=== PATIENT | female | born 2000 | race Caucasian/White ===

== ENCOUNTER 2019-01-10 18:22 | Outpatient (CLI) | payer SELFPAY ==
[2019-01-10 20:34] VITALS: BP 122/75; PULSE 98; RESP 16; TEMP 97.5
== END 2019-01-10 20:04 | disposition home or self-care (01) ==
LOC: FBPOP 18:22
PROVIDERS: ATTEND Obstetrics & Gynecology
DX: O47.03 False labor before 37 completed weeks of gestation, third trimester (principal); Z3A.36 36 weeks gestation of pregnancy
CPT/HCPCS: 59025; 99213

== ENCOUNTER 2019-02-02 05:53 | Inpatient (IN) | payer OTHER ==
--- NOTE | 2019-02-01 20:36 | P.HPOB ---
History of Present Illness H&P Date: 02/01/19 This is a 18 y.o. female, 1, para 0, with an estimated date of confinement of 01/27/2019, estimated gestational age of 40-6/7 weeks, who presents for induction of labor due to post-dates. She admits to good movement and does feel irregular contractions and pressure. course has been essentially uncomplicated other than she was diagnosed with a right EIF on her anatomy ultrasound. She was unable to continue going to maternal medicine due to transportation issues. labs: GC/20/minus-negative Hepatitis B surface antigen-negative RPR-nonreactive Rubella-nonimmune Blood type-A+ Antibody screen-negative HIV-nonreactive The globe and-10.9 Toxoplasma screen-negative Random glucose-97 Obstetrical ultrasound-echogenic focus noted in the heart., echocardiogram-essentially normal One hour Glucola-171 Three-hour Glucola-within normal limits Group B streptococcus-negative Obstetrical history: ASSIST[employer] SUPERINTENDENT history: No history of sexual transmitted diseases Social history: She is single. She works part-time as a ct scan special procedures technologist. Review of Systems Constitutional: Denies chills, Denies fever Eyes: denies blurred vision, denies pain Ears, nose, mouth and throat: Denies headache, Denies sore throat Cardiovascular: Denies chest pain, Denies shortness of breath Respiratory: Denies cough Gastrointestinal: Reports abdominal pain (Irregular contractions), Denies diarrhea, Denies nausea, Denies vomiting Genitourinary: Reports pelvic pain, Reports , Denies dysuria, Denies hematuria Musculoskeletal: Reports low back pain Integumentary: Denies pruritus, Denies rash Neurological: Denies numbness, Denies weakness Psychiatric: Reports anxiety Past Medical History Past Medical History: No Reported History History of Any Multi-Drug Resistant Organisms: None Reported Past Surgical History: No Surgical Hx Reported Past Psychological History: No Psychological Hx Reported Smoking Status: Never smoker Past Alcohol Use History: None Reported Past Drug Use History: None Reported - Past Family History Mother Family Medical History: No Reported History Medications and Allergies Home Medications Medication Instructions Recorded Confirmed Type Pnv No.95/Ferrous Fum/Folic AC 1 each PO DAILY 01/10/19 01/10/19 History [ Multivitamin Tablet] Allergies Allergy/AdvReac Type Severity Reaction Status Date / Time No Known Allergies Allergy Verified 01/10/19 18:31 Exam Osteopathic Statement: *. No significant issues noted on an osteopathic structural exam other than those noted in the History and Physical/Consult. HEENT: Within normal limits Heart: Regular rate and rhythm Lungs: Clear to auscultation bilaterally Abdomen: Cervix: 1 cm/70%/-2 heart tones 140s by Doppler Extremities: Negative Homans Assessment and Plan (1) Post-term , 40-42 weeks of gestation Status: Acute Code(s): O48.0 - POST-TERM SNOMED Code(s): 65018863 Plan: Proceed with oxytocin induction of labor. Expectant management. Epidural anesthesia if desired.
[2019-02-02] MEDS ORDERED: OXYTOCIN 10 UNIT/ML 1 ML VIAL IM PRN (06:23)
[2019-02-02] MEDS ORDERED: METHYLERGONOVINE 0.2 MG/ML 1 ML AMP IM PRN (06:23)
[2019-02-02] MEDS ORDERED: LIDOCAINE 1% 20 ML VIAL (10MG/ML) FOR IV START INTRADERMA PRN (06:23)
[2019-02-02] MEDS ORDERED: LIDOCAINE 0.5% (PF) 5 MG/ML (50 ML SDV) SQ PRN (06:23)
[2019-02-02] MEDS ORDERED: TERBUTALINE 1 MG/ML VIAL SQ PRN (06:23)
[2019-02-02] MEDS ORDERED: OXYTOCIN 30 UNITS/500 ML NS 30 UNIT in SALINE 1 500ML.BAG IV SCH (06:23)
[2019-02-02] MEDS ORDERED: CARBOPROST TROMETHAMINE 250 MCG/ML 1 ML AMP IM PRN (06:23)
[2019-02-02 06:32] VITALS: BMI 32.8
[2019-02-02 06:42] LABS: Basophils % (A) 1 %; Eosinophils # (A) 0.1 k/uL (0-0.7); Eosinophils % (A) 1 %; HCT 33.1 % (34.0-46.0); HGB 10.9 gm/dL (11.4-16.0); Lymphocytes # (A) 1.6 k/uL (1.0-4.8); Lymphocytes % (A) 22 %; MCH 28.2 pg (25.0-35.0); MCHC 33.1 g/dL (31.0-37.0); MCV 85.3 fL (80.0-100.0); Mean Platelet Volume 8.7; Monocytes # (A) 0.7 k/uL (0-1.0); Monocytes % (A) 9 %; Neutrophils # (A) 4.6 k/uL (1.3-7.7); Neutrophils % (A) 64 %; Platelet Count 221 k/uL (150-450); RBC 3.88 m/uL (3.80-5.40); RDW 14.4 % (11.5-15.5); WBC 7.2 k/uL (4.0-11.0)
[2019-02-02] MEDS: LACTATED RINGERS 1,000 ML IV SCH ×3 (06:44→15:56)
[2019-02-02] MEDS ORDERED: BUTORPHANOL 1 MG/ML 1 ML VIAL IV PRN (11:09)
[2019-02-02] MEDS ORDERED: ROPIVACAINE 5MG/ML 20ML VIAL ONE (12:42)
[2019-02-02] MEDS ORDERED: fentaNYL (PF) 50 MCG/ML 5 ML AMP ONE (12:42)
[2019-02-02] MEDS ORDERED: SODIUM CHLORIDE 0.9% 100 ML BAG ONE (12:42)
[2019-02-02] MEDS ORDERED: CITRIC ACID-SODIUM CITRATE 15 ML CUP PO ONE ×2 (19:48→19:59)
[2019-02-02] MEDS ORDERED: ONDANSETRON 4 MG/2 ML VIAL ONE (20:16)
[2019-02-02] MEDS ORDERED: KETOROLAC 30 MG/ML 1 ML VIAL ONE (20:16)
[2019-02-02] MEDS ORDERED: PHENYLEPHRINE-0.9% NACL SYG 1 MG/10 ML SYRINGE ONE (20:16)
[2019-02-02] MEDS ORDERED: fentaNYL (PF) 50 MCG/ML 2 ML AMP ONE (20:16)
[2019-02-02] MEDS ORDERED: OXYTOCIN 10 UNIT/ML 1 ML VIAL ONE (20:16)
--- NOTE | 2019-02-02 21:02 | P.OP ---
Date of Procedure: 02/02/19 Preoperative Diagnosis: 1. Intrauterine at 40-6/7 weeks. 2. Obstruction of labor. Postoperative Diagnosis: Same Procedure(s) Performed: Primary low transverse section Anesthesia: epidural Surgeon: Jazzmine Lama Administrative Dietitian #1: Albert Hand Estimated Blood Loss (ml): 800 Pathology: other (Placenta) Condition: stable Disposition: floor Indications for Procedure: This is a 18-year-old female 1 para 0 at 40-6/7 weeks who presented for induction of labor secondary to postdates. She underwent oxytocin induction of labor and did receive epidural anesthesia. She reached a maximum of 3 cm and made no further progress despite adequate contractions over at least a 5 hour period of time. At this point the decision was made to proceed with section for obstructed labor and failure to progress. I have discussed the risks, benefits, and alternative therapies for the above- mentioned procedure and for both sedation/anesthesia as well as necessary blood products administration, if indicated, as they pertain to this patient. The patient has indicated her understanding and acceptance of the risks and procedures discussed. Operative Findings: A viable male is noted in the vertex right occiput transverse lie with scores of 9 at 1 minute and 9 at 5 minutes and infant weight of 7 lbs. 11 oz. Caput was noted. Normal uterus tubes and ovaries are noted. Description of Procedure: The patient is taken to the operating room where she is placed in the dorsal supine position with leftward tilt after epidural anesthesia is bolused. She is prepped and draped in the normal sterile fashion. Skin was tested and found to be adequately anesthetized. A Pfannenstiel skin incision was made with a scalpel. A second knife was used to carry the incision down to the underlying layer of fascia. The fascia was nicked in the midline with a scalpel and then extended laterally bilaterally with Rosenberg scissors. The anterior lip of the fascia was grasped with 2 Gertrudis clamps and then dissected off the underlying rectus muscle in the midline with Rosenberg scissors. The inferior aspect of the fascial incision was grasped with 2 Gertrudis clamps and dissected off the underlying rectus muscle and the midline with Rosenberg scissors. Next the peritoneum layer was tented up with 2 hemostats and then entered sharply with the scalpel. The incision is extended superiorly and inferiorly with Metzenbaum scissors. Next a DeLee retractor is placed. The vesicouterine peritoneum is entered sharply with Metzenbaum scissors and extended laterally bilaterally with Metzenbaum scissors and then the bladder flap is pushed inferiorly. The lower uterine segment is incised in transverse fashion with the scalpel and then bluntly entered with a hemostat. Clear fluid is noted. The incision was then extended laterally bilaterally with 2 fingers. Next the 's head is delivered through the incision. Nose and mouth are bulb suctioned. The remainder of the is easily delivered and placed on mother's abdomen. Cord is clamped and cut. is taken to warmer by nursing staff. Uterine fundus is gently massaged and placenta is delivered manually. Uterus is exteriorized and cleared of all clots and debris. Uterine incision is closed with 0 Vicryl suture in a running locked fashion. A second layer of 0 Vicryl suture is used in a running fashion for hemostasis. Once adequate hemostasis as assured, the vesicouterine peritoneum is reapproximated with 2-0 Vicryl suture in a running fashion. Posterior cul-de-sac is suctioned of all clots and debris. Uterus is returned to the abdomen. Incision is noted to be hemostatic. Peritoneal layer is closed with 0 Vicryl suture in a running fashion. Muscle layer is reapproximated with 0 Vicryl suture in interrupted fashion. Fascia layer is then closed with 0 PDS suture with 2 sutures meeting in the midline and the knots buried in either side and in the midline. The subcutaneous tissue was then closed with 2-0 Vicryl suture. Skin layer was then closed with nataliia. All sponge and needle counts are correct. The patient is taken to recovery room in stable condition.
[2019-02-02] MEDS ORDERED: OXYTOCIN 20 UNITS/1000 ML NS 1,000 ML IV SCH (21:08)
[2019-02-02] MEDS ORDERED: ZOLPIDEM 5 MG TAB PO PRN (21:08)
[2019-02-02] MEDS ORDERED: HYDROcodone/APAP 5-325MG 1 EACH TAB PO PRN (21:08)
[2019-02-02] MEDS ORDERED: SIMETHICONE 80 MG CHEWABLE PO PRN (21:08)
[2019-02-02] MEDS ORDERED: NALOXONE 0.4 MG/ML 1 ML VIAL IV PRN (21:08)
[2019-02-02] MEDS ORDERED: diphenhydrAMINE 25 MG CAP PO PRN (21:08)
[2019-02-02] MEDS ORDERED: diphenhydrAMINE 50 MG/ML 1 ML VIAL IVP PRN ×2 (21:08)
[2019-02-02] MEDS ORDERED: diphenhydrAMINE 50 MG CAP PO PRN (21:08)
[2019-02-02] MEDS ORDERED: METOCLOPRAMIDE 5 MG/ML 2 ML VIAL IVP PRN (21:08)
[2019-02-02] MEDS ORDERED: LANOLIN CREAM 5 GM TUBE TOPICAL PRN (21:08)
[2019-02-02] MEDS ORDERED: MEASLES-MUMPS-RUBELLA VACC/PF 12,500 UNIT/0.5 ML VIAL SQ ONE (21:08)
[2019-02-02] MEDS ORDERED: ONDANSETRON 4 MG/2 ML VIAL IVP PRN (21:08)
[2019-02-02] MEDS ORDERED: KETOROLAC 30 MG/ML 1 ML VIAL IVP PRN (21:08)
[2019-02-02] MEDS ORDERED: ACETAMINOPHEN TAB 325 MG TAB PO PRN (21:08)
[2019-02-03 07:07] LABS: Basophils % (A) 0 %; Eosinophils % (A) 0 %; HCT 27.3 % (34.0-46.0); Lymphocytes % (A) 11 %; MCH 27.4 pg (25.0-35.0); MCHC 33.3 g/dL (31.0-37.0); MCV 82.4 fL (80.0-100.0); Monocytes # (A) 0.6 k/uL (0-1.0); Monocytes % (A) 7 %; Neutrophils # (A) 7.6 k/uL (1.3-7.7); Neutrophils % (A) 81 %; Platelet Count 143 k/uL (150-450); RBC 3.31 m/uL (3.80-5.40); RDW 15.2 % (11.5-15.5); WBC 9.4 k/uL (4.0-11.0)
[2019-02-03 07:18] LABS: HGB 9.1 gm/dL (11.4-16.0)
--- NOTE | 2019-02-03 09:08 | P.PNOBGPC ---
Subjective - Subjective Principal diagnosis: Status post primary section postoperative day #1 Interval history: Patient is stating she didn't get any sleep last night and is very anxious. She has been using her [employer] pump but states it is not working very well. She has passed flatus but no bowel movement yet. She has not urinated yet. Lochia is decreasing. Patient reports: Reports appetite normal, Reports pain poorly controlled [place]: doing well Objective - Vital Signs Latest vital signs: Vital Signs Temp Pulse Resp BP Pulse Ox 02/03/19 04:00 99.0 F 74 18 116/61 02/03/19 00:00 98.3 F 75 16 108/65 02/02/19 23:07 98.2 F 83 16 118/62 02/02/19 22:40 98.0 F 90 16 117/65 02/02/19 22:10 97.8 F 106 H 16 127/57 98 02/02/19 21:55 98.0 F 100 16 108/55 98 02/02/19 21:38 98.2 F 115 H 16 117/59 96 02/02/19 21:25 99.2 F 110 H 16 128/64 98 02/02/19 21:10 98.5 F 109 H 16 133/62 98 Intake and Output 02/02/19 02/03/19 02/03/19 22:59 06:59 14:59 Output Total 200 1400 Balance -200 -1400 Output: Urine 200 600 Estimated Blood Loss 800 - Exam Extremities: Present: normal. Absent: tenderness Abdomen: Present: normal appearance, soft (Positive bowel sounds 4), tenderness (Mild). Absent: distention Incision: Present: normal, dry, intact. Absent: erythematous Uterus: Present: normal, firm - Labs Labs: Abnormal Lab Results - Last 24 Hours (Table) 02/03/19 Range/Units 06:48 RBC 3.31 L (3.80-5.40) m/uL Hgb 9.1 L D (11.4-16.0) gm/dL Hct 27.3 L (34.0-46.0) % Plt Count 143 L (150-450) k/uL Assessment and Plan Assessment: Impression is status post primary section postoperative day #1 (1) Post-term , 40-42 weeks of gestation Current Visit: No Status: Acute Code(s): O48.0 - POST-TERM SNOMED Code(s): 62708725 Plan: Patient is encouraged to ambulate. Will advance diet as tolerated. Will switch to oral pain medications later today.
[2019-02-03] MEDS: LACTATED RINGERS 1,000 ML IV SCH (09:55)
[2019-02-03] MEDS: HYDROcodone/APAP 7.5-325MG 1 EACH TAB PO PRN ×3 (10:05→22:52)
[2019-02-03] MEDS: IBUPROFEN 600 MG TAB PO PRN ×2 (15:01→20:41)
[2019-02-03 17:07] VITALS: RESP 16
[2019-02-03] MEDS: SENNOSIDES-DOCUSATE SODIUM 1 EACH TAB PO SCH (19:52)
[2019-02-04] MEDS: IBUPROFEN 600 MG TAB PO PRN ×2 (02:40→08:48)
[2019-02-04] MEDS: HYDROcodone/APAP 7.5-325MG 1 EACH TAB PO PRN ×2 (05:26→12:06)
[2019-02-04 08:25] VITALS: BP 126/66; PULSE 66; TEMP 98.1
--- NOTE | 2019-02-04 08:28 | P.DS ---
Providers Date of admission: 02/02/19 05:53 Expected date of discharge: 02/04/19 Attending physician: Jazzmine Lama Primary care physician: Stated None - Discharge Diagnosis(es) (1) Status post primary low transverse section Current Visit: Yes Status: Acute Hospital Course: Patient presented with spontaneous rupture of membranes. After failure to progress with augmentation she underwent a primary low transverse . Postoperatively she had some trouble with pain control but she is doing well today and will be discharged home postoperative day #2 in stable condition with nataliia removed, to follow-up with Dr. Lama in one week. Plan - Discharge Summary New Discharge Prescriptions: New Ibuprofen [Motrin] 600 mg PO Q6HR PRN #30 tab PRN Reason: Mild Pain Or Fever >= 100.5 HYDROcodone/APAP 7.5-325MG [[place] 7.5-325] 1 each PO Q4H PRN #18 tab PRN Reason: Severe Pain No Action Pnv No.95/Ferrous Fum/Folic AC [ Multivitamin Tablet] 1 each PO DAILY Discharge Medication List Pnv No.95/Ferrous Fum/Folic AC [ Multivitamin Tablet] 1 each PO DAILY 01/10/19 [History] HYDROcodone/APAP 7.5-325MG [[place] 7.5-325] 1 each PO Q4H PRN #18 tab 02/04/19 [Rx] Ibuprofen [Motrin] 600 mg PO Q6HR PRN #30 tab 02/04/19 [Rx] Follow up Appointment(s)/Referral(s): Jazzmine Lama DO [Doctor of Osteopathic Medicine] - 1 Week Discharge Disposition: HOME SELF-CARE
[2019-02-04] MEDS: SENNOSIDES-DOCUSATE SODIUM 1 EACH TAB PO SCH ×2 (08:49→11:20)
== END 2019-02-04 15:45 | disposition home or self-care (01) | DRG 788 ==
LOC: 4FBP 05:53
PROVIDERS: ADMIT Obstetrics & Gynecology; ATTEND Obstetrics & Gynecology
PROC: 3E033VJ Introduction of Other Hormone into Peripheral Vein, Percutaneous Approach (ICD-10-PCS; principal; 2019-02-02 20:17)
PROC: 00HU33Z Insertion of Infusion Device into Spinal Canal, Percutaneous Approach (ICD-10-PCS; principal; 2019-02-02 20:17)
PROC: 10D00Z1 Extraction of Products of Conception, Low, Open Approach (ICD-10-PCS; principal; 2019-02-02 20:17)
PROC: 3E0R3NZ Introduction of Analgesics, Hypnotics, Sedatives into Spinal Canal, Percutaneous Approach (ICD-10-PCS; principal; 2019-02-02 20:17)
DX: O61.0 Failed medical induction of labor (principal); O48.0 Post-term pregnancy; Z37.0 Single live birth; O99.62 Diseases of the digestive system complicating childbirth; O66.9 Obstructed labor, unspecified; O62.0 Primary inadequate contractions; K21.9 Gastro-esophageal reflux disease without esophagitis; Z3A.40 40 weeks gestation of pregnancy
CPT/HCPCS: 85025; 86850; 86900; 86901; 88307